=== PATIENT | male | born 1955 | race Caucasian/White ===

== ENCOUNTER 2018-06-09 19:03 | Emergency (ER) | payer SELFPAY ==
[2018-06-09] MEDS: IBUPROFEN 600 MG TAB PO (21:51)
[2018-06-09] MEDS: CEPHALEXIN 500 MG CAP PO (21:51)
== END 2018-06-09 22:18 | disposition home or self-care (01) ==
LOC: FTE 22:18
DX: K04.7 Periapical abscess without sinus (principal)
CPT/HCPCS: 99283